=== PATIENT | male | born 2005 | race Two or more races ===

== ENCOUNTER 2024-11-12 01:57 | Emergency (ER) | payer OTHER ==
[~2024-11-12] VITALS: Ht 180.3 cm; Wt 83.0 kg
[2024-11-12] MEDS ORDERED: KETOROLAC TROMETHAMINE 30 MG VIAL IV STA (04:13)
[2024-11-12] MEDS ORDERED: HALOPERIDOL LACTATE 5 MG/ML AMPUL IM STA (04:14)
[2024-11-12] MEDS ORDERED: DIPHENHYDRAMINE HCL 50 MG/ML VIAL 1ML IM STA (04:14)
[2024-11-12] MEDS ORDERED: DIPHENHYDRAMINE HCL 50 MG/ML VIAL 1ML ONE (04:17)
[2024-11-12] MEDS ORDERED: KETOROLAC TROMETHAMINE 30 MG VIAL ONE (04:17)
[2024-11-12] MEDS ORDERED: HALOPERIDOL LACTATE 5 MG/ML AMPUL ONE (04:18)
== END 2024-11-12 06:33 | disposition home or self-care (01) ==
LOC: ER 01:57
DX: G43.909 Migraine, unspecified, not intractable, without status migrainosus (principal)